=== PATIENT | female | born 1990 | race American Indian/Alaskan Native ===

== ENCOUNTER 2016-09-29 01:15 | Inpatient (IN) | payer MEDICAID ==
[2016-09-29] MEDS ORDERED: BRETHINE SUB-Q PRN (01:28)
[2016-09-29] MEDS ORDERED: BRETHINE IVP PRN (01:28)
[2016-09-29] MEDS ORDERED: ZOFRAN IV PRN ×2 (01:28→03:48)
[2016-09-29] MEDS ORDERED: MINERAL OIL PO PRN (01:28)
[2016-09-29] MEDS ORDERED: ePHEDrine SULFATE IV PRN (01:28)
[2016-09-29] MEDS ORDERED: SUBLIMAZE IV PRN (01:28)
[2016-09-29] MEDS ORDERED: XYLOCAINE 2% INFILTRATI ONE (01:28)
[2016-09-29 01:51] LABS: Hematocrit 36.5 % (30.3-42.9); Hemoglobin 12.2 gm/dl (10.1-14.3); Mean Corpuscular HGB Conc 33 % (30-34); Mean Corpuscular Hemoglobin 31 pg (28-32); Mean Corpuscular Volume 92 fl (79-97); Platelet Count 174 K/mm3 (140-440); Red Blood Count 3.98 M/mm3 (3.65-5.03); Red Cell Distribution Width 13.4 % (13.2-15.2)
--- NOTE | 2016-09-29 01:52 | History and Physical Report ---
History of Present Illness Date of examination: 09/29/16 Date of admission: 09/29/16 01:21 Chief complaint: labor History of present illness: 25 yo A1 at 39wk + 4d admitted from triage at 8 cm with bulging membranes. Known GBS neg, O pos, R-Im. No issues this . 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 Weight (lb): 140 BMI: 23.3 Pre- Weight: 140 BP: 122/ 70 mm Hg Ur. Protein: 2+ Ur. Glucose: negative Chief Complaint/Current Status: pt presents for Missed Period; c/o extreme N&V ...................................................................Michelle Rico February 27, 2016 2:42 PM last papsmear 02/2015 wnl per pt, requests not to have pap done today. pt is to have pap results sent to office - if normal and no hx abnormal pap may wait until 2019 for next pap ...................................................................Danna Villa CNM February 27, 2016 3:30 PM Menstrual History Regularity: regular Menses every: 28 days Duration: 4 LMP: 12/27/2015 LMP reliability: definite LMP character: normal test type: urine test Date: 02/27/2016 BC at conception: none Planned ? yes EDC Calculations LMP: 10/02/2016 EDC Confirmation: 10/02/2016 Gestational Age: 8 6/7 weeks Past History : 3 Term Births: 1 Premature Births: 0 Living Children: 1 Para: 1 Mult. Births: 0 Prev : 0 Prev. attempt? 0 Aborta: 1 Elect. Ab: 1 Spont. Ab: 0 Ectopics: 0 # 1 Delivery date: 2011 Weeks Gestation: term labor: no Delivery type: Anesthesia type: epidural Delivery location: [facility] Sex: Male weight: 8# Comments: no complications # 2 Delivery date: 03/2015 Weeks Gestation: 8wks Delivery type: EAB Comments: hyperemesis Past Medical History: fibroids Past Surgical History: negative Past Medical History Anesthesia Complications: negative Anemia: negative Autoimmune Disorder: negative Bleeding Disorder: negative Blood Transfusions: negative Breast Disease: negative Diabetes: negative Heart Disease: negative Hypertension: negative Hepatitis/Liver Disease: negative Kidney Disease/UTI: negative Neurologic/Epilepsy/Migraines: negative Phlebitis/Varicosities: negative Psychiatric: negative Pulmonary Disease/Asthma: negative Thyroid Disease: negative Hospitalizations: negative Surgery (Non-weather analyst): negative Abnormal PAP: negative, 02/2015 - normal ELIUD Exposure: negative Infertility: negative Uterine Anomaly: negative Uterine Surgery (not C/S): negative Other Gynecologic Problems: negative Infection History Hx of STD: chlamydia HIV Risk Eval: low risk Hepatitis B Risk Eval: low risk Personal hx. of genital herpes: no Partner hx. of genital herpes: no Rash, Viral, or Febrile illness since last LMP? no Varicella/Chicken Pox Status: Immunized Genetic History Congenital Heart Defect: Mom: no Dad: no Valeriy Disease: Mom: no Dad: no Thalassemia Mom: no Dad: no Neural Tube Defect Mom: no Dad: no Down's Syndrome Mom: no Dad: no Regis-Sachs Mom: no Dad: no Sickle Cell Disease/Trait Mom: no Dad: no Hemophilia Mom: no Dad: no Muscular Dystrophy Mom: no Dad: no Cystic Fibrosis Mom: no Dad: no [place] Chorea Mom: no Dad: no Mental Retardation Mom: no Dad: no Fragile X Mom: no Dad: no Other Genetic/Chromosomal Disorder Mom: no Dad: no Child w/other defect Mom: no Dad: no Enviromental Exposures Xray Exposure: no Medication, drug, or alcohol use since LMP: no Chemical/Other Exposure: no Exposure to Cat Liter: yes Hx of Parvovirus (Fifth Disease): no Occupational Exposure to Children: none Active Medications: None Current Allergies: No known allergies Laboratory Results Routine Urinalysis Leukocytes: negative Nitrite: negative Urobilinogen: negative Protein: 2+ Blood: negative Ketone: large (160) Bilirubin: negative Glucose: negative Urine HCG: positive Review of Systems General Denies fever, chills, sweats, anorexia, fatigue, weakness, malaise, weight loss and sleep disorder. Complains of nausea. Denies headache, swelling of legs, abdominal pain, vaginal discharge, vaginal bleeding and contractions. Denies vaginal discharge, incontinence, dysuria, hematuria, urinary frequency, amenorrhea, menorrhagia, abnormal vaginal bleeding, pelvic pain, genital sores, decreased libido, painful periods, painful sex, urinary urgency, hot flashes, vaginal dryness, vaginal itching and vaginal odor. CV Denies chest pains, palpitations, syncope, dyspnea on exertion, orthopnea, PND and peripheral edema. Resp Denies cough, dyspnea at rest, excessive sputum, hemoptysis, wheezing and pleurisy. GI Denies nausea, vomiting, diarrhea, constipation, change in bowel habits, abdominal pain, melena, hematochezia, jaundice, gas/bloating, indigestion/ heartburn, dysphagia and odynophagia. Endo Denies cold intolerance, heat intolerance, polydipsia, polyphagia, polyuria and unusual weight change. Breast Denies left breast lump, right breast lump, nipple discharge, bloody discharge from nipple, breast pain, abnormal mammogram and breast enlargement. MS Denies back pain, joint pain, joint swelling, muscle cramps, muscle weakness, stiffness, arthritis, sciatica, restless legs, leg pain at night and leg pain with exertion. Derm Denies rash, itching, dryness and suspicious lesions. Neuro Denies paralysis, paresthesias, headache, seizures, tremors, vertigo, transient blindness, frequent falls, frequent headaches and difficulty walking. Psych Denies depression, anxiety, irritability and mood swings. Eyes Denies blurring, diplopia, irritation, discharge, vision loss, eye pain and photophobia. ENT Denies earache, ear discharge, tinnitus, decreased hearing, nasal congestion, nosebleeds, sore throat and hoarseness. Allergy Denies urticaria, allergic rash, hay fever and recurrent infections. Heme Denies abnormal bruising, bleeding and enlarged lymph nodes. PHYSICAL EXAM HEENT: PERRLA, normal conjunctiva, external nose and nasal mucosa normal, oropharynx clear Neck/Thyroid: supple, thyroid normal Skin no significant abnormal lesions or rashes Chest: respiratory effort normal, clear to auscultation Breasts: normal without skin changes or masses CV: regular, normal S1-S2, no murmur, no rub, no gallop Abdomen: normal bowel sounds, soft, nontender, no HSM Musculoskeletal: grossly normal ROM in joints, no joint tenderness or muscle weakness Neuro: grossly normal DTRs, sensation, strength, cranial nerves Extremities: no clubbing, cyanosis, or edema SVP OPERATIONS Exams FHT: 176 Flowsheet View for Follow-up Visit Estimated weeks of gestation: 8 6/7 Weight: 140 Blood pressure: 122 / 70 Urine protein: 2+ Urine glucose: negative Urine nitrite: negative FHR: 176 Past History - Obstetrical History : 3 Medications and Allergies Allergies Allergy/AdvReac Type Severity Reaction Status Date / Time No Known Allergies Allergy Unverified 04/17/15 17:33 Active Meds: Active Medications Fentanyl (Sublimaze) 100 mcg IV Q2H PRN PRN Reason: Labor Pain Lactated Ringer's (Lactated Ringers) 1,000 mls @ 125 mls/hr IV DIRECT MONSERRAT Oxytocin/Sodium Chloride (Pitocin/Ns 20 Unit/1000ml Drip) 20 units in 1,000 mls @ 125 mls/hr IV DIRECT MONSERRAT Mineral Oil (Mineral Oil) 30 ml PO QHS PRN PRN Reason: Constipation Ondansetron HCl (Zofran) 4 mg IV Q8H PRN PRN Reason: Nausea And Vomiting Results Result Diagrams: 09/29/16 00:20 All other labs normal. Assessment and Plan - Patient Problems (1) Active labor at term Current Visit: Yes Status: Acute Plan to address problem: delivery
[2016-09-29] MEDS ORDERED: LACTATED RINGERS 1,000 ML IV SCH (02:00)
[2016-09-29] MEDS ORDERED: PITOCin/NS 20 UNIT/1000ML DRIP 20 UNITS/1,000 ML BAG IV SCH (02:00)
--- NOTE | 2016-09-29 02:06 | Procedure Note ---
OB Delivery Note - Delivery Date of Delivery: 09/29/16 Surgeon: ALICE REINOSO Registered Nurse Post Partum: ALICE REINOSO Estimated blood loss: 300cc - Vaginal Delivery presentation: vertex Delivery position: OA Intrapartum events: other(please specify) (precipitous delivery, I arrived as head was but was able to control vertex. There was a very tight nuchal cord that I was attempting to reduce when the patient pushed a little and the cord avulsed from the . There was a very short 2 cm stump of cord at umbilicus that was clamped and was handed to attending NICU staff. Cord clamp was removed by me as it had been placed slightly on some of umbilical skin and the cord was reclamped off the edge of the umbilical skin.) Delivery induction: none Delivery monitor: external FHT Route of delivery: Delivery placenta: spontaneous Delivery cord: nuchal cord (very tight, see note above, cord avulsed approximately 2 cm from umbilicus), 3 umbilical vessels Episiotomy: none Delivery laceration: none Anesthesia: none - A at 1 minute: 7 at 5 minutes: 9 Gender: Male (6#15oz)
[2016-09-29] MEDS ORDERED: TYLENOL PO PRN (03:48)
[2016-09-29] MEDS ORDERED: PHENERGAN PO PRN (03:48)
[2016-09-29] MEDS ORDERED: SODIUM CHLORIDE FLUSH SYRINGE 10 ML IV NR (03:48)
[2016-09-29] MEDS ORDERED: TORADOL IV PRN (03:48)
[2016-09-29] MEDS ORDERED: DULCOLAX PR PRN (03:48)
[2016-09-29] MEDS ORDERED: TUCKS PAD TP PRN (03:48)
[2016-09-29] MEDS ORDERED: LANSINOH TP PRN (03:48)
[2016-09-29] MEDS ORDERED: PHENERGAN PR PRN (03:48)
[2016-09-29] MEDS ORDERED: MILK OF MAGNESIA PO PRN (03:48)
[2016-09-29] MEDS ORDERED: BENADRYL PO PRN (03:48)
[2016-09-29] MEDS: NORCO 5/325 PO PRN ×4 (04:34→22:20)
[2016-09-29] MEDS: MOTRIN PO SCH ×3 (05:00→18:06)
--- NOTE | 2016-09-29 09:43 | Progress Note ---
Assessment and Plan - Patient Problems (1) Active labor at term Onset Date: ~09/28/16 Current Visit: Yes Status: Acute Plan to address problem: s/p normal vag delivery (2) Single live Current Visit: Yes Status: Acute (3) Vaginal delivery Current Visit: Yes Status: Acute Subjective - Subjective Date of service: 09/29/16 Principal diagnosis: NVD Interval history: 25 yo A1 at 39wk + 4d admitted from triage at 8 cm with bulging membranes. Known GBS neg, O pos, R-Im. No issues this . 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 Weight (lb): 140 BMI: 23.3 Pre- Weight: 140 BP: 122/ 70 mm Hg Ur. Protein: 2+ Ur. Glucose: negative Chief Complaint/Current Status: pt presents for Missed Period; c/o extreme N&V ...................................................................Michelle Rico February 27, 2016 2:42 PM last papsmear 02/2015 wnl per pt, requests not to have pap done today. pt is to have pap results sent to office - if normal and no hx abnormal pap may wait until 2019 for next pap ...................................................................Danna Villa CNM February 27, 2016 3:30 PM Menstrual History Regularity: regular Menses every: 28 days Duration: 4 LMP: 12/27/2015 LMP reliability: definite LMP character: normal test type: urine test Date: 02/27/2016 BC at conception: none Planned ? yes EDC Calculations LMP: 10/02/2016 EDC Confirmation: 10/02/2016 Gestational Age: 8 6/7 weeks Past History : 3 Term Births: 1 Premature Births: 0 Living Children: 1 Para: 1 Mult. Births: 0 Prev : 0 Prev. attempt? 0 Aborta: 1 Elect. Ab: 1 Spont. Ab: 0 Ectopics: 0 # 1 Delivery date: 2010 Weeks Gestation: term labor: no Delivery type: Anesthesia type: epidural Delivery location: [facility] Sex: Male weight: 8# Comments: no complications # 2 Delivery date: 03/2015 Weeks Gestation: 8wks Delivery type: EAB Comments: hyperemesis Past Medical History: fibroids Past Surgical History: negative Past Medical History Anesthesia Complications: negative Anemia: negative Autoimmune Disorder: negative Bleeding Disorder: negative Blood Transfusions: negative Breast Disease: negative Diabetes: negative Heart Disease: negative Hypertension: negative Hepatitis/Liver Disease: negative Kidney Disease/UTI: negative Neurologic/Epilepsy/Migraines: negative Phlebitis/Varicosities: negative Psychiatric: negative Pulmonary Disease/Asthma: negative Thyroid Disease: negative Hospitalizations: negative Surgery (Non-power barker): negative Abnormal PAP: negative, 02/2015 - normal ELIUD Exposure: negative Infertility: negative Uterine Anomaly: negative Uterine Surgery (not C/S): negative Other Gynecologic Problems: negative Infection History Hx of STD: chlamydia HIV Risk Eval: low risk Hepatitis B Risk Eval: low risk Personal hx. of genital herpes: no Partner hx. of genital herpes: no Rash, Viral, or Febrile illness since last LMP? no Varicella/Chicken Pox Status: Immunized Genetic History Congenital Heart Defect: Mom: no Dad: no Valeriy Disease: Mom: no Dad: no Thalassemia Mom: no Dad: no Neural Tube Defect Mom: no Dad: no Down's Syndrome Mom: no Dad: no Regis-Sachs Mom: no Dad: no Sickle Cell Disease/Trait Mom: no Dad: no Hemophilia Mom: no Dad: no Muscular Dystrophy Mom: no Dad: no Cystic Fibrosis Mom: no Dad: no [place] Chorea Mom: no Dad: no Mental Retardation Mom: no Dad: no Fragile X Mom: no Dad: no Other Genetic/Chromosomal Disorder Mom: no Dad: no Child w/other defect Mom: no Dad: no Enviromental Exposures Xray Exposure: no Medication, drug, or alcohol use since LMP: no Chemical/Other Exposure: no Exposure to Cat Liter: yes Hx of Parvovirus (Fifth Disease): no Occupational Exposure to Children: none Active Medications: None Current Allergies: No known allergies Laboratory Results Routine Urinalysis Leukocytes: negative Nitrite: negative Urobilinogen: negative Protein: 2+ Blood: negative Ketone: large (160) Bilirubin: negative Glucose: negative Urine HCG: positive Review of Systems General Denies fever, chills, sweats, anorexia, fatigue, weakness, malaise, weight loss and sleep disorder. Complains of nausea. Denies headache, swelling of legs, abdominal pain, vaginal discharge, vaginal bleeding and contractions. Denies vaginal discharge, incontinence, dysuria, hematuria, urinary frequency, amenorrhea, menorrhagia, abnormal vaginal bleeding, pelvic pain, genital sores, decreased libido, painful periods, painful sex, urinary urgency, hot flashes, vaginal dryness, vaginal itching and vaginal odor. CV Denies chest pains, palpitations, syncope, dyspnea on exertion, orthopnea, PND and peripheral edema. Resp Denies cough, dyspnea at rest, excessive sputum, hemoptysis, wheezing and pleurisy. GI Denies nausea, vomiting, diarrhea, constipation, change in bowel habits, abdominal pain, melena, hematochezia, jaundice, gas/bloating, indigestion/ heartburn, dysphagia and odynophagia. Endo Denies cold intolerance, heat intolerance, polydipsia, polyphagia, polyuria and unusual weight change. Breast Denies left breast lump, right breast lump, nipple discharge, bloody discharge from nipple, breast pain, abnormal mammogram and breast enlargement. MS Denies back pain, joint pain, joint swelling, muscle cramps, muscle weakness, stiffness, arthritis, sciatica, restless legs, leg pain at night and leg pain with exertion. Derm Denies rash, itching, dryness and suspicious lesions. Neuro Denies paralysis, paresthesias, headache, seizures, tremors, vertigo, transient blindness, frequent falls, frequent headaches and difficulty walking. Psych Denies depression, anxiety, irritability and mood swings. Eyes Denies blurring, diplopia, irritation, discharge, vision loss, eye pain and photophobia. ENT Denies earache, ear discharge, tinnitus, decreased hearing, nasal congestion, nosebleeds, sore throat and hoarseness. Allergy Denies urticaria, allergic rash, hay fever and recurrent infections. Heme Denies abnormal bruising, bleeding and enlarged lymph nodes. 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 FHT: 176 Flowsheet View for Follow-up Visit Estimated weeks of gestation: 8 6/7 Weight: 140 Blood pressure: 122 / 70 Urine protein: 2+ Urine glucose: negative Urine nitrite: negative FHR: 176 Patient reports: appetite normal, voiding normally, pain well controlled, ambulating normally [place]: doing well Objective - Vital Signs Latest vital signs: Vital Signs Temp Pulse Resp BP 09/29/16 03:45 98.8 F 80 20 123/59 09/29/16 02:59 78 129/67 09/29/16 02:44 81 141/67 09/29/16 02:29 79 128/66 09/29/16 02:25 18 09/29/16 02:14 96 H 134/73 09/29/16 01:59 107 H 125/68 09/29/16 01:55 20 09/29/16 01:27 97.7 F 107 H 18 125/68 Intake and Output 09/28/16 09/29/16 09/29/16 22:59 06:59 14:59 Intake Total 125 Output Total 400 400 Balance -275 -400 Intake: IV 125 PITOCin/NS 20 UNIT/1000ML 125 DRIP 20 units In 1,000 ml @ 125 mls/hr IV DIRECT MONSERRAT Rx#:[id number] Output: Urine 400 400 Void 400 400 Other: Total, Output Amount 400 400 Weight 180 lb Estimated Blood Loss 300 - Exam Breasts: Present: deferred Lungs: Present: Normal air movement Abdomen: Present: soft Uterus: Present: firm Extremities: Present: normal
[2016-09-29 15:11] LABS: Hemoglobin 10.3 gm/dl (10.1-14.3)
[2016-09-30] MEDS: MOTRIN PO SCH ×4 (00:07→18:25)
[2016-09-30] MEDS ORDERED: BOOSTRIX IM ONE ×2 (02:13→06:00)
--- NOTE | 2016-09-30 07:11 | Discharge Summary ---
Providers - Providers Date of Admission: 09/29/16 01:21 Date of discharge: 09/30/16 (pt agrees with d/c if baby can go) Attending physician: ALICE REINOSO Primary care physician: ALICE ERINOSO Hospitalization Reason for admission: active labor Delivery: Episiotomy: none Laceration: none Incision: normal Other procedures: none Discharge diagnosis: IUP at term delivered baby: male (decline circumcision) Hospital course: uncomplicated vaginal delivery Pt resting w/o complaint VSS FF below umb Lochia small Perineum intact H&H drop r/t to blood loss from delivery Pt is asymptomatic Doing well s/p vag delivery RTO 4 weeks PP care Condition at discharge: Good Disposition: DC-01 TO HOME OR SELFCARE - Discharge Diagnoses (1) Vaginal delivery Status: Acute Comment: rto 4 weeks PP care Plan - Discharge Medications Prescriptions: Ibuprofen [Motrin 600 MG tab] 600 mg PO Q8H PRN #30 tablet PRN Reason: Pain Lidocain2.5%/Prilocai2.5% [Emla] 5 gm TP 1XW #1 tube - Provider Discharge Summary Activity: routine, no sex for 6 weeks, no heavy lifting 4 weeks, no strenuous exercise Diet: routine Instructions: routine Additional instructions: [] Smoking cessation referral if applicable(refer to patient education folder for contact #) [] Refer to [facility]'s [facility] Booklet Call your doctor immediately for: * Fever > 100.5 * Heavy vaginal bleeding ( >1 pad per hour) * Severe persistent headache * Shortness of breath * Reddened, hot, painful area to leg or breast * Drainage or odor from incision. * Keep incision clean and dry at all times and follow doctor's instructions regarding bathing/showering - Follow up plan Follow up: ALICE REINOSO MD [Primary Care Provider] - 10/30/16 (Congratulations! Please call [phone] to schedule your visit in 4 weeks. Take medications as prescribed. Call with concerns.)
[2016-09-30] MEDS: NORCO 5/325 PO PRN ×2 (11:27→18:25)
[2016-10-01] MEDS: NORCO 5/325 PO PRN ×3 (00:21→16:41)
[2016-10-01] MEDS: MOTRIN PO SCH ×3 (00:21→16:41)
[2016-10-01 16:42] VITALS: BP 133/63
== END 2016-10-01 17:10 | disposition home or self-care (01) | DRG 775 ==
LOC: TRG 01:15 → LD 01:21 → EDBD 01:21 → OB 03:37
PROVIDERS: ADMIT Obstetrics & Gynecology; ATTEND Obstetrics & Gynecology
PROC: 10E0XZZ Delivery of Products of Conception, External Approach (ICD-10-PCS; principal; 2016-09-29)
DX: O62.3 Precipitate labor (principal); Z3A.39 39 weeks gestation of pregnancy; Z37.0 Single live birth; O69.1XX0 Labor and delivery complicated by cord around neck, with compression, not applicable or unspecified; R71.0 Precipitous drop in hematocrit; O75.89 Other specified complications of labor and delivery
CPT/HCPCS: 36415; 85014; 85018; 85027; 86592; 86850; 86900; 86901; 99211; A6250; G0463; J2590; J3010